=== PATIENT | male | born 1975 | race Hispanic/Latino ===

== ENCOUNTER 2017-12-25 23:11 | Inpatient (IN) | payer OTHER ==
[2017-12-26 00:10] LABS: #Basophils 0.1 thou/uL (0.0-0.2); #Eosinphils 0.1 thou/uL (0.0-0.7); #Lymphocytes 1.8 thou/uL (1.20-3.40); #Monocytes 1.1 thou/uL (0.11-0.59); #Neutrophils 11.3 thou/uL (1.40-6.50); %Basophils 0.6 % (0.0-1.0); %Eosinophils 0.4 % (0.0-10.0); %Lymphocytes 12.5 % (21.0-51.0); %Monocytes 7.6 % (0.0-10.0); Hemoglobin 14.2 g/dL (14.0-18.0); Mean Corpuscular HGB CONC 35.9 g/dL (32.0-36.0); Mean Corpuscular Hemoglobin 31.4 pg (27.0-31.0); Mean Corpuscular Volume 87.6 fL (78.0-98.0); Mean Platelet Volume 7.6 fL (7.4-10.4); Platelet Count 175 thou/uL (130-400); RBC Distribution Width 12.1 % (11.5-14.5); Red Blood Cell (RBC) Count 4.53 mill/uL (4.70-6.10); White Blood Cell (WBC) Count 14.3 thou/uL (4.8-10.8)
[2017-12-26] MEDS ORDERED: Morphine 4 MG/ML VIAL ONE (00:18)
[2017-12-26] MEDS ORDERED: cefTRIAXone\\ROCEPHIN 2 GM VIAL ONE (00:19)
[2017-12-26 00:31] LABS: ALT (SGPT) 40 U/L (8-55); AST (SGOT) 24 U/L (5-34); Albumin 3.8 g/dL (3.5-5.0); Alkaline Phosphatase 79 U/L (40-150); Anion Gap 14 mmol/L (10-20); BUN (Urea Nitrogen) 10 mg/dL (8.9-20.6); Bilirubin, Total 0.7 mg/dL (0.2-1.2); Calc. Creatinine Clearance 0 mL/min (70-130); Calcium 8.8 mg/dL (7.8-10.44); Carbon Dioxide 20 mmol/L (22-29); Chloride 107 mmol/L (98-107); Estimated GFR-MDRD Greater than 90; Globulin 2.9 g/dL (2.4-3.5); Glucose 125 mg/dL (70-105); Magnesium 1.7 mg/dL (1.6-2.6); Protein, Total 6.7 g/dL (6.0-8.3); Sodium 137 mmol/L (136-145)
[2017-12-26 00:32] LABS: CKMB 0.3 ng/mL (0-6.6); Troponin I Less than 0.010 ng/mL (< 0.028)
[2017-12-26 01:25] LABS: Bilirubin Negative (Negative); Blood, Urine Negative (Negative); Clarity CLEAR (Clear); Glucose, Urine (Dipstick) Negative (Negative); Leukocyte Negative (Negative); Nitrite Negative (Negative); Protein, Urine (Dipstick) Negative (Neg-Trace); Specific Gravity, Urine 1.009 (1.002-1.036); pH, Urine 7.5 (5.0-9.0)
[2017-12-26] MEDS ORDERED: HYDROcodone/Acetaminophen 5/325 mg Tablet ONE (02:37)
[2017-12-26] MEDS ORDERED: Ondansetron ODT 4 MG TAB SL PRN (03:25)
[2017-12-26] MEDS ORDERED: Acetaminophen 325 MG TAB PO PRN ×2 (03:25→07:43)
[2017-12-26] MEDS ORDERED: HYDROcodone/Acetaminophen 5/325 mg Tablet PO PRN ×3 (03:25→07:43)
[2017-12-26] MEDS ORDERED: Ondansetron HCl/PF 4 MG/2 ML Vial IVP PRN (03:25)
[2017-12-26 03:37] VITALS: BMI 31.3
[2017-12-26] MEDS ORDERED: Ondansetron ODT 4 MG TAB PO PRN (07:43)
[2017-12-26] MEDS ORDERED: Senokot 8.6 MG TAB PO PRN (07:43)
[2017-12-26] MEDS ORDERED: Calcium Carbonate 500 MG ChewTAB PO PRN (07:43)
[2017-12-26] MEDS ORDERED: Vancomycin HCl 1 GM in Premix Bag 1 BAG IVPB SCH (07:45)
[2017-12-26 08:25] LABS: Hemoglobin A1c 5.4 % (4.0-6.0)
[2017-12-26] MEDS: Sodium Chloride 0.9% 1,000 ML IV SCH (09:00)
[2017-12-26] MEDS: Piperacillin/Tazobactam 3.375 GM in Sodium Chloride 0.9% 100 ML IVPB SCH ×3 (09:00→20:16)
[2017-12-26] MEDS: Enoxaparin Sodium 40 MG/0.4 ML SYRINGE SC SCH (09:00)
[2017-12-26] MEDS: Docusate 100 MG CAP PO SCH ×2 (09:00→20:17)
[2017-12-26] MEDS: HYDROcodone/Acetaminophen 5/325 mg Tablet PO PRN ×3 (09:47→17:56)
[2017-12-26] MEDS: Vancomycin HCl 1.25 GM in Sodium Chloride 0.9% 250 ML 250 ML IVPB SCH ×2 (09:47→17:55)
--- NOTE | 2017-12-26 10:36 | RAD ---
SINGLE VIEW OF RIGHT FEMUR: Date: 12/26/17 COMPARISON: None. HISTORY: Right thigh cellulitis. Evaluate for foreign body. FINDINGS: Single anterior views of the right thigh/femur were performed. There is no evidence of fracture or di slocation. No radiopaque foreign body is seen. IMPRESSION: No evidence of radiopaque foreign body. POS: [facility]
--- NOTE | 2017-12-26 11:30 | HP ---
DATE OF ADMISSION: 12/26/2017 PRIMARY CARE PHYSICIAN: Patient is an inmate. CHIEF COMPLAINT: Right thigh swelling and pain of 1 day duration. HISTORY OF PRESENT ILLNESS: Patient is a 42-year-old male who is an inmate who was brought into the emergency room with above complaints. Over the last 24 hours, patient noticed gradual worsening pain along with swelling and tenderness ove r the anterior right thigh. It started with a small blister that eventually ruptured. He also felt feverish and had intermittent chills. His pain was 10/10 over his right thigh. He was unable to wal k due to significant pain. He denies similar episodes in the past. He denies any trauma. He thinks that he may have had an insect bite. In the emergency room, his initial vital signs showed temperature of 102.3, pulse rate of 120, blood pressure 153/90 with O2 saturation of 96% on room air. His EKG showed sinus tachycardia. He receive d vancomycin, Rocephin, morphine, Tylenol and [place] in the emergency room. PAST MEDICAL HISTORY: 1. Anxiety. 2. Chronic hip pain, on naproxen. PAST SURGICAL HISTORY: Reviewed with the patient and none. ALLERGIES: No known drug allergies. CURRENT HOME MEDICATION: Naproxen on a daily basis. SOCIAL HISTORY: The patient smokes up to 1 cigarette on a daily basis. No alcohol or drug use. FAMILY HISTORY: Negative for heart disease. REVIEW OF SYSTEMS: The following complete review of systems was negative, unless otherwise mentioned in the HPI or below: Constitutional: Weight loss or gain, ability to conduct usual activities. Skin: Rash, itching. Eyes: Double vision, pain. ENT/Mouth: Nose bleeding, neck stiffness, pain, tenderness. Cardiovascular: Palpitations, dyspnea on exertion, orthopnea. Respiratory: Shortness of breath, wheezing, cough, hemoptysis, fever or night sweats. Gastrointestinal: Poor appetite, abdominal pain, heartburn, nausea, vomiting, constipation, or diarr hea. Genitourinary: Urgency, frequency, dysuria, nocturia. Musculoskeletal: Pain, swelling. Neurologic/Psychiatric: Anxiety, depression. Allergy/Immunologic: Skin rash, bleeding tendency. PHYSICAL EXAMINATION: VITAL SIGNS: As discussed above. GENERAL: A 42-year-old male in mild distress due to significant thigh pain. HEENT: Head is atraumatic, normocephalic. Sclerae are anicteric. Moist mucous membrane, no oral le joe. NECK: Supple, no JVD, no carotid bruit. LUNGS: Clear to auscultation bilaterally, no wheezing, rales or rhonchi. HEART: S1, S2 present. Regular rate and rhythm. No murmur, rubs, or gallops. ABDOMEN: Soft, nontender, bowel sounds present. EXTREMITIES: There is significant warmth along with swelling noted over the right anterior thigh. N o fluctuance appreciated. Indurated area has approximately 6 inch x 10 inch with some induration. I t is warm on palpation. There is significant tenderness on palpation. SKIN: As discussed above. LYMPH NODES: No palpable lymph nodes in the neck. PERIPHERAL VASCULAR: Radial pulses palpable bilaterally. MUSCULOSKELETAL: No joint swelling or tenderness. LABORATORY DATA AND IMAGING DATA: 1. CBC showed WBC of 14.3 with 79% neutrophils, hemoglobin 14.2. 2. CRP 11.9, hemoglobin A1c 5.4. Troponins negative. Sodium 137, potassium 4, chloride 107, bicarb joshua 20, BUN 10, creatinine 0.8. Urinalysis was negative. 3. X-ray of the femur by my review was negative for foreign body. 4. Blood cultures are pending at this time. 5. EKG by my review showed sinus tachycardia without significant ST-T wave changes. IMPRESSION: 1. Sepsis secondary to right thigh cellulitis with suspected abscess. 2. Elevated inflammatory markers. 3. Anxiety. 4. Tobacco dependence. 5. Obesity with body mass index of 31.3. 6. Leukocytosis secondary to #1. 7. Sinus tachycardia secondary to #1. PLAN: The patient will be monitored on the medical floor. We will continue vancomycin. We will add Zosyn. We will get wound culture. Consult wound care. Consult Infectious Disease. Await blood cu ltures. Deep venous thrombosis prophylaxis. Gentle intravenous hydration. Walking program. Plan of care was discussed with the patient in detail. He stated understanding.
[2017-12-27] MEDS: Vancomycin HCl 1.25 GM in Sodium Chloride 0.9% 250 ML 250 ML IVPB SCH ×3 (00:43→17:52)
[2017-12-27] MEDS: HYDROcodone/Acetaminophen 5/325 mg Tablet PO PRN ×3 (00:48→20:49)
[2017-12-27] MEDS: Piperacillin/Tazobactam 3.375 GM in Sodium Chloride 0.9% 100 ML IVPB SCH ×4 (02:36→20:48)
[2017-12-27 05:12] LABS: #Eosinphils 0.2 thou/uL (0.0-0.7); #Lymphocytes 1.8 thou/uL (1.20-3.40); #Monocytes 0.6 thou/uL (0.11-0.59); #Neutrophils 9.5 thou/uL (1.40-6.50); %Basophils 0.4 % (0.0-1.0); %Eosinophils 1.3 % (0.0-10.0); %Lymphocytes 14.6 % (21.0-51.0); %Monocytes 5.2 % (0.0-10.0); %Neutrophils 78.4 % (42.0-75.0); Mean Corpuscular HGB CONC 34.6 g/dL (32.0-36.0); Mean Corpuscular Hemoglobin 30.5 pg (27.0-31.0); Mean Corpuscular Volume 88.2 fL (78.0-98.0); Mean Platelet Volume 7.6 fL (7.4-10.4); Platelet Count 204 thou/uL (130-400); RBC Distribution Width 12.1 % (11.5-14.5); Red Blood Cell (RBC) Count 4.59 mill/uL (4.70-6.10); White Blood Cell (WBC) Count 12.1 thou/uL (4.8-10.8)
[2017-12-27 05:41] LABS: ALT (SGPT) 88 U/L (8-55); AST (SGOT) 61 U/L (5-34); Albumin 3.8 g/dL (3.5-5.0); Alkaline Phosphatase 82 U/L (40-150); Anion Gap 13 mmol/L (10-20); BUN (Urea Nitrogen) 9 mg/dL (8.9-20.6); Bilirubin, Total 0.9 mg/dL (0.2-1.2); Calc. Creatinine Clearance 136 mL/min (70-130); Carbon Dioxide 22 mmol/L (22-29); Chloride 106 mmol/L (98-107); Estimated GFR-MDRD Greater than 90; Globulin 3.2 g/dL (2.4-3.5); Glucose 130 mg/dL (70-105); Potassium 4.3 mmol/L (3.5-5.1); Sodium 137 mmol/L (136-145)
[2017-12-27] MEDS: Docusate 100 MG CAP PO SCH ×2 (08:42→20:48)
[2017-12-27] MEDS: Enoxaparin Sodium 40 MG/0.4 ML SYRINGE SC SCH (08:42)
[2017-12-27] MEDS: Sodium Chloride 0.9% 1,000 ML IV SCH ×2 (08:47)
[2017-12-27] MEDS ORDERED: ISOVUE-370 76%-LOCM 1 ML ONE (10:00)
[2017-12-27] MEDS: Naproxen 500 MG TAB PO SCH ×2 (13:39→17:52)
--- NOTE | 2017-12-27 15:17 | CT ---
CONTRAST ENHANCED CT IMAGES OF RIGHT THIGH: Date: 12/27/17 HISTORY: Right thigh phlegmon. Evaluate abscess versus cellulitis. FINDINGS: Contrast enhanced CT images of the proximal right lower extremity obtained. Images demonstrate edema with inflammatory changes seen anterior to the right thigh in the subcutaneo us fat extending from the anterior aspect laterally. No definite evidence of areas of significant enh ancement seen to suggest obvious right thigh abscess. No significant evidence of obvious muscular nec rosis or enhancement seen. No areas of central fluid density seen. IMPRESSION: Predominantly subcutaneous fat areas of fat stranding compatible with cellulitis. No obvious evidence of abscess seen in the right thigh. POS: [facility]
--- NOTE | 2017-12-27 15:18 | CON ---
DATE OF CONSULTATION: 12/27/2017 REASON FOR CONSULTATION: Right thigh inflammatory process. HISTORY OF PRESENT ILLNESS: A 42-year-old with history of arthritis in the hip area, anxiety who dev eloped what he describes as a pimple in the right anterior mid thigh which he proceeded to squeeze. The patient is an inmate in local [facility] [place] or correction after they tried to squeeze it. There was progr ession of inflammatory process over the past few days. It was eventually admitted. Currently on bro ad spectrum coverage and we have 1 set out of 2 with what appears to be an alpha hemolytic streptococ cus. No headaches, visual symptoms, sore throat, odynophagia, dysphagia, no back pain, no dyspnea or cough. No abdominal pain, diarrhea, voiding without difficulty. No bleeding. No other joint sympt oms. PAST MEDICAL HISTORY: Includes anxiety, arthropathy and ankle in the hips, probably degenerative. H istory of previous abscess in the right hand many years ago. ALLERGIES: None. MEDICATIONS: Had been on naproxen in the hospital. Here is currently on Presto, Colace, Lovenox, Pep litzy, Zosyn, and vancomycin. SOCIAL HISTORY: He had been a previous daily smoker, no alcoholic beverage use or drug use. He is c urrently at [facility], I believe FAMILY HISTORY: Negative for any significant illness. PHYSICAL EXAMINATION: VITAL SIGNS: T-max 98.6, blood pressure 130/80, pulse 102, respirations 18. SKIN: Shows area of erythema measuring about 12 x 15 cm in an irregular area in the right anterior t high proximal mid thigh region with a central area of pinhole wound opening. There is marked indurat ion surrounding this area. No lymphadenopathy. HEENT: Noncontributory. NECK: Supple. BACK: No back tenderness. LUNGS: Clear to auscultation and percussion. HEART: Normal. ABDOMEN: Soft, not distended or tender. No ascites. No bladder distention or organomegaly. EXTREMITIES: No joint inflammatory activity. Pulses 2+ in dorsalis pedis. NEUROLOGIC: Nonfocal including cognitive function. LABORATORY DATA: White cell count 14 and now 12, hemoglobin 14 and now is stable, platelets at 44 wi th a mild mature neutrophilia. Creatinine 0.8. Liver profile normal. Now, the AST is up to 61, ALT 88. CRP 11, albumin 3.8. IMAGING STUDIES: Femur x-ray which was not remarkable. Microbiology with alpha hemolytic strep in 1 out of 2 sets of blood cultures and the thigh, right culture with no organism growth thus far. ASSESSMENT: Inflammatory process right thigh with a likely possibility of abscess/phlegmon. We will image the area to see if he will need surgical debridement or not. Continue antimicrobial therapy a s currently. Likely culprits here include Staphylococcus aureus is the more likely culprit. The Str eptococcus retrieved from the blood stream could be a contaminant. We will wait for the final identi fication and typically alpha hemolytic Streptococci do not cause this sort of a process associated wi th hair follicles. Usually, this is a typical Staphylococcal process.
[2017-12-27] MEDS: Famotidine 20 MG TAB PO SCH (20:48)
--- NOTE | 2017-12-27 23:04 | PDOC.PN ---
- Subjective Encounter Start Date: 12/27/17 Encounter Start Time: 15:00 Patient seen and examined for Rt thigh cellulitis. Still has significant pain. No new complaints. No overnight events - Objective Resuscitation Status: Resuscitation Status FULL:Full Resuscitation MAR Reviewed: Yes Vital Signs & Weight: Vital Signs (12 hours) Temp Pulse Resp BP Pulse Ox 12/27/17 15:32 98.2 F 99 16 155/99 H 93 L 12/27/17 11:20 98.8 F 102 H 18 131/85 18 L Weight Admit Weight 200 lb Weight 200 lb I&O: 12/26/17 12/27/17 12/28/17 06:59 06:59 06:59 Intake Total 410 1200 2200 Output Total 500 600 Balance -90 600 2200 Result Diagrams: 12/27/17 23:44 12/27/17 23:44 Radiology Reviewed by me: Yes (Rt thigh CT - No abscess) Phys Exam - Physical Examination Constitutional: NAD Respiratory: no wheezing, no rhonchi Cardiovascular: RRR, no rub Gastrointestinal: soft, non-tender, positive bowel sounds Musculoskeletal: pulses present Rt thigh erythema/tenderness Neurological: non-focal, moves all 4 limbs Dx/Plan - Plan DVT proph w/SCDs IMPRESSION: 1. Sepsis secondary to right thigh cellulitis 2. Elevated inflammatory markers. 3. Anxiety. 4. Tobacco dependence. 5. Obesity with body mass index of 31.3. 6. Leukocytosis secondary to #1. 7. Sinus tachycardia secondary to #1. PLAN: Cont Vancomycin and Zosyn Monitor Vancomycin level AM labs Pain control Review of Systems - Review of Systems Respiratory: negative: Cough, Dry, Shortness of Breath, Hemoptysis, SOB with Excertion, Pleuritic Pain, Sputum, Wheezing Cardiovascular: negative: chest pain, palpitations, orthopnea, paroxysmal nocturnal dyspnea, edema, light headedness, other - Medications/Allergies Allergies/Adverse Reactions: Allergies Allergy/AdvReac Type Severity Reaction Status Date / Time No Known Allergies Allergy Unverified 12/26/17 03:21 Medications: Current Medications Acetaminophen (Tylenol) 650 mg PO Q4H PRN PRN Reason: Headache/Fever or Pain Hydrocodone Bitart/Acetaminophen ([place] 5/325) 1 tab PO Q4H PRN PRN Reason: Moderate Pain (4-6) Hydrocodone Bitart/Acetaminophen ([place] 5/325) 2 tab PO Q4H PRN PRN Reason: Severe Pain (7-10) Last Admin: 12/27/17 20:49 Dose: 2 tab Calcium Carbonate (Tums) 1,000 mg PO Q4H PRN PRN Reason: Heartburn or Indigestion Docusate Sodium (Colace) 100 mg PO BID [facility] Last Admin: 12/27/17 20:48 Dose: 100 mg Enoxaparin Sodium (Lovenox) 40 mg SC 0900 [facility] Last Admin: 12/27/17 08:42 Dose: 40 mg Famotidine (Pepcid) 20 mg PO BID [facility] Last Admin: 12/27/17 20:48 Dose: 20 mg Sodium Chloride (Normal Saline 0.9%) 1,000 mls @ 70 mls/hr IV .[id number] [facility] Last Admin: 12/27/17 08:47 Dose: 1,000 mls Piperacillin Sod/Tazobactam (Sod 3.375 gm/ Sodium Chloride) 100 mls @ 200 mls/ hr IVPB Q6H [facility] Last Admin: 12/27/17 20:48 Dose: 100 mls Vancomycin HCl 1.25 gm/ Sodium (Chloride) 250 mls @ 166.667 mls/hr IVPB Q8H [facility] Last Admin: 12/27/17 17:52 Dose: 250 mls Miscellaneous Medication (Pharmacy To Dose) 1 each IVPB ASDIR [facility] Naproxen (Naprosyn) 500 mg PO BID-[facility] Last Admin: 12/27/17 17:52 Dose: 500 mg Ondansetron HCl (Zofran Odt) 4 mg PO Q6H PRN PRN Reason: Nausea/Vomiting Senna (Senokot) 2 tab PO HSPRN PRN PRN Reason: Constipation Sodium Chloride (Flush - Normal Saline) 10 ml IVF Q12HR [facility] Last Admin: 12/27/17 20:48 Dose: 10 ml Sodium Chloride (Flush - Normal Saline) 10 ml IVF PRN PRN PRN Reason: Saline Flush
[2017-12-27 23:52] LABS: #Basophils 0.1 thou/uL (0.0-0.2); #Eosinphils 0.2 thou/uL (0.0-0.7); #Lymphocytes 2.2 thou/uL (1.20-3.40); #Monocytes 0.7 thou/uL (0.11-0.59); #Neutrophils 7.2 thou/uL (1.40-6.50); %Basophils 0.6 % (0.0-1.0); %Eosinophils 2.2 % (0.0-10.0); %Lymphocytes 21.3 % (21.0-51.0); %Monocytes 6.6 % (0.0-10.0); %Neutrophils 69.4 % (42.0-75.0); Hemoglobin 12.7 g/dL (14.0-18.0); Mean Corpuscular HGB CONC 34.9 g/dL (32.0-36.0); Mean Corpuscular Hemoglobin 30.8 pg (27.0-31.0); Mean Corpuscular Volume 88.3 fL (78.0-98.0); Mean Platelet Volume 7.3 fL (7.4-10.4); Platelet Count 211 thou/uL (130-400); Red Blood Cell (RBC) Count 4.13 mill/uL (4.70-6.10); White Blood Cell (WBC) Count 10.4 thou/uL (4.8-10.8)
[2017-12-28 00:13] LABS: Vancomycin, Trough 16.2 ug/mL
[2017-12-28 00:14] LABS: Anion Gap 10 mmol/L (10-20); BUN (Urea Nitrogen) 8 mg/dL (8.9-20.6); Calc. Creatinine Clearance 142 mL/min (70-130); Calcium 9.1 mg/dL (7.8-10.44); Carbon Dioxide 26 mmol/L (22-29); Chloride 105 mmol/L (98-107); Estimated GFR-MDRD Greater than 90; Glucose 112 mg/dL (70-105); Sodium 137 mmol/L (136-145)
[2017-12-28] MEDS: Vancomycin HCl 1.25 GM in Sodium Chloride 0.9% 250 ML 250 ML IVPB SCH ×3 (01:11→17:00)
[2017-12-28] MEDS: Piperacillin/Tazobactam 3.375 GM in Sodium Chloride 0.9% 100 ML IVPB SCH ×4 (02:42→20:25)
[2017-12-28] MEDS: Sodium Chloride 0.9% 1,000 ML IV SCH ×2 (02:43→10:55)
[2017-12-28] MEDS: Enoxaparin Sodium 40 MG/0.4 ML SYRINGE SC SCH (08:53)
[2017-12-28] MEDS: Docusate 100 MG CAP PO SCH (08:53)
[2017-12-28] MEDS: Naproxen 500 MG TAB PO SCH ×2 (08:53→17:00)
[2017-12-28] MEDS: HYDROcodone/Acetaminophen 5/325 mg Tablet PO PRN ×3 (08:53→20:26)
[2017-12-28] MEDS: Famotidine 20 MG TAB PO SCH ×2 (08:53→20:26)
[2017-12-28] MEDS ORDERED: Polyethylene Glycol 3350 17 GM Packet PO SCH (10:30)
--- NOTE | 2017-12-28 15:14 | PRG ---
DATE OF SERVICE: 12/28/2017 SUBJECTIVE: Mr. Pineda is feeling better. PHYSICAL EXAMINATION: VITAL SIGNS: Normal. There is less erythema in the right thigh region. LUNGS: Clear. CARDIOVASCULAR: S1, S2, regular rate. ABDOMEN: Soft. DATABASE: CT did not show any obvious abscess. ASSESSMENT AND DISCUSSION: Inflammatory process right thigh with cellulitis, maybe early phlegmon ma y turn into an abscess eventually. Continue antimicrobial therapy only. The organisms, likely Staph ylococcus aureus which has been retrieved from the thigh culture. The alpha strep is likely contamin ant. Waiting on the susceptibilities of the Staph aureus. Hopefully, can transition to oral antimic robial therapy after an initial improvement for discharge planning. Those cases typically will event ually liquefy form an abscess, sometimes might require surgical drainage.
[2017-12-28] MEDS: Senokot S 8.6-50 MG TAB PO SCH (20:26)
--- NOTE | 2017-12-28 22:38 | PDOC.PN ---
- Subjective Encounter Start Date: 12/28/17 Encounter Start Time: 17:00 Patient seen and examined for Cellulitis. Still has significant Rt thigh pain. No new complaints. No overnight events - Objective Resuscitation Status: Resuscitation Status FULL:Full Resuscitation MAR Reviewed: Yes Vital Signs & Weight: Vital Signs (12 hours) Temp Pulse Resp BP Pulse Ox 12/28/17 20:30 98.0 F 84 18 132/82 96 12/28/17 16:00 97.3 F L 79 18 123/80 93 L 12/28/17 11:55 97.9 F 83 18 123/78 97 Weight Admit Weight 200 lb Weight 200 lb I&O: 12/27/17 12/28/17 12/29/17 06:59 06:59 06:59 Intake Total 1200 3400 3710 Output Total 600 Balance 600 3400 3710 Result Diagrams: 12/27/17 23:44 12/27/17 23:44 Phys Exam - Physical Examination Constitutional: NAD Cardiovascular: RRR, no rub Gastrointestinal: soft, non-tender, positive bowel sounds Musculoskeletal: no edema Improving erythema over Rt thigh, Still has induration Neurological: non-focal Dx/Plan - Plan continue antibiotics, out of bed/ambulate, DVT proph w/lovenox, DVT proph w/SCDs IMPRESSION: 1. Sepsis secondary to right thigh cellulitis due to Staph 2. Elevated inflammatory markers. 3. Anxiety. 4. Tobacco dependence. 5. Obesity with body mass index of 31.3. 6. Leukocytosis secondary to #1. 7. Sinus tachycardia secondary to #1. PLAN: Cont Atbx Monitor Vancomycin level Pain control DC planning Review of Systems - Review of Systems Respiratory: negative: Cough, Dry, Shortness of Breath, Hemoptysis, SOB with Excertion, Pleuritic Pain, Sputum, Wheezing Cardiovascular: negative: chest pain, palpitations, orthopnea, paroxysmal nocturnal dyspnea, edema, light headedness, other - Medications/Allergies Allergies/Adverse Reactions: Allergies Allergy/AdvReac Type Severity Reaction Status Date / Time No Known Allergies Allergy Unverified 12/26/17 03:21 Medications: Current Medications Acetaminophen (Tylenol) 650 mg PO Q4H PRN PRN Reason: Headache/Fever or Pain Hydrocodone Bitart/Acetaminophen ([place] 5/325) 1 tab PO Q4H PRN PRN Reason: Moderate Pain (4-6) Hydrocodone Bitart/Acetaminophen ([place] 5/325) 2 tab PO Q4H PRN PRN Reason: Severe Pain (7-10) Last Admin: 12/28/17 20:26 Dose: 2 tab Calcium Carbonate (Tums) 1,000 mg PO Q4H PRN PRN Reason: Heartburn or Indigestion Enoxaparin Sodium (Lovenox) 40 mg SC 0900 [facility] Last Admin: 12/28/17 08:53 Dose: 40 mg Famotidine (Pepcid) 20 mg PO BID [facility] Last Admin: 12/28/17 20:26 Dose: 20 mg Piperacillin Sod/Tazobactam (Sod 3.375 gm/ Sodium Chloride) 100 mls @ 200 mls/ hr IVPB Q6H [facility] Last Admin: 12/28/17 20:25 Dose: 100 mls Vancomycin HCl 1.25 gm/ Sodium (Chloride) 250 mls @ 166.667 mls/hr IVPB Q8H [facility] Last Admin: 12/28/17 17:00 Dose: 250 mls Sodium Chloride (Normal Saline 0.9%) 1,000 mls @ 50 mls/hr IV .Q20H [facility] Last Admin: 12/28/17 10:55 Dose: Not Given Miscellaneous Medication (Pharmacy To Dose) 1 each IVPB ASDIR [facility] Naproxen (Naprosyn) 500 mg PO BID-[facility] Last Admin: 12/28/17 17:00 Dose: 500 mg Ondansetron HCl (Zofran Odt) 4 mg PO Q6H PRN PRN Reason: Nausea/Vomiting Polyethylene Glycol (Miralax) 17 gm PO DAILY [facility] Senna (Senokot) 2 tab PO HSPRN PRN PRN Reason: Constipation Senna/Docusate Sodium (Senokot S) 1 tab PO BID [facility] Last Admin: 12/28/17 20:26 Dose: 1 tab Sodium Chloride (Flush - Normal Saline) 10 ml IVF Q12HR [facility] Last Admin: 12/28/17 21:07 Dose: Not Given Sodium Chloride (Flush - Normal Saline) 10 ml IVF PRN PRN PRN Reason: Saline Flush
[2017-12-29] MEDS: Vancomycin HCl 1.25 GM in Sodium Chloride 0.9% 250 ML 250 ML IVPB SCH ×3 (00:09→16:12)
[2017-12-29] MEDS: Piperacillin/Tazobactam 3.375 GM in Sodium Chloride 0.9% 100 ML IVPB SCH ×4 (01:45→22:35)
[2017-12-29] MEDS: Enoxaparin Sodium 40 MG/0.4 ML SYRINGE SC SCH (07:47)
[2017-12-29] MEDS: Famotidine 20 MG TAB PO SCH ×2 (07:48→20:48)
[2017-12-29] MEDS: Naproxen 500 MG TAB PO SCH ×2 (07:48→16:13)
[2017-12-29] MEDS: Polyethylene Glycol 3350 17 GM Packet PO SCH (07:48)
[2017-12-29] MEDS: Senokot S 8.6-50 MG TAB PO SCH ×2 (07:48→20:48)
[2017-12-29] MEDS: HYDROcodone/Acetaminophen 5/325 mg Tablet PO PRN ×3 (07:49→20:48)
[2017-12-29] MEDS: Sodium Chloride 0.9% 1,000 ML IV SCH ×2 (11:20→22:31)
--- NOTE | 2017-12-29 15:04 | PDOC.PN ---
- Subjective Encounter Start Date: 12/29/17 Encounter Start Time: 15:03 Patient seen and examined by me. Right thigh abscess/cellulitis draining pus. Patient states that he is in pain. - Objective Resuscitation Status: Resuscitation Status FULL:Full Resuscitation MAR Reviewed: Yes Vital Signs & Weight: Vital Signs (12 hours) Temp Pulse Resp BP Pulse Ox 12/29/17 11:56 98.0 F 71 16 124/83 96 12/29/17 07:49 98.2 F 86 18 96 12/29/17 07:41 98.2 F 86 18 133/82 96 12/29/17 04:00 97.6 F 70 17 114/64 97 Weight Admit Weight 200 lb Weight 200 lb I&O: 12/28/17 12/29/17 12/30/17 06:59 06:59 06:59 Intake Total 3400 5060 Balance 3400 5060 Result Diagrams: 12/27/17 23:44 12/27/17 23:44 Phys Exam - Physical Examination Constitutional: NAD HEENT: PERRLA, moist MMs Neck: no nodes, no JVD Respiratory: no wheezing, no rales, no rhonchi, clear to auscultation bilateral Cardiovascular: RRR, no significant murmur Gastrointestinal: soft, non-tender, no distention Musculoskeletal: no edema, pulses present Neurological: non-focal, normal sensation, moves all 4 limbs Psychiatric: A&O x 3 Skin: normal turgor Deviation from normal: right thigh tenderness with ecchymosis/ induration Dx/Plan (1) Abscess of right thigh Code(s): L02.415 - CUTANEOUS ABSCESS OF RIGHT LOWER LIMB Status: Acute Comment: Will continue antibiotics. Wound care. Will consult surgery for futher evaluation. Will follow ID's recs. Pain meds prn. (2) Cellulitis of right thigh Code(s): L03.115 - CELLULITIS OF RIGHT LOWER LIMB Status: Acute Comment: continue antibiotics (3) Sepsis Code(s): A41.9 - SEPSIS, UNSPECIFIED ORGANISM Status: Acute Comment: resolved. Will continue current managment. (4) Anxiety Code(s): F41.9 - ANXIETY DISORDER, UNSPECIFIED Status: Acute Comment: stable at this time. - Plan * . Review of Systems - Review of Systems Constitutional: negative: fever, chills, sweats, weakness, malaise, other Eyes: negative: Pain, Vision Change, Conjunctivae Inflammation, Eyelid Inflammation, Redness, Other ENT: negative: Ear Pain, Ear Discharge, Nose Pain, Nose Discharge, Nose Congestion, Mouth Pain, Mouth Swelling, Throat Pain, Throat Swelling, Other Respiratory: negative: Cough, Dry, Shortness of Breath, Hemoptysis, SOB with Excertion, Pleuritic Pain, Sputum, Wheezing Cardiovascular: negative: chest pain, palpitations, orthopnea, paroxysmal nocturnal dyspnea, edema, light headedness, other Gastrointestinal: negative: Nausea, Vomiting, Abdominal Pain, Diarrhea, Constipation, Melena, Hematochezia, Other Genitourinary: negative: Dysuria, Frequency, Incontinence, Hematuria, Retention , Other Musculoskeletal: negative: Neck Pain, Shoulder Pain, Arm Pain, Back Pain, Hand Pain, Leg Pain, Foot Pain, Other Skin: Other (right thigh abscess and cellulitis). negative: Rash, Lesions, Ruben , Bruising Neurological: negative: Weakness, Numbness, Incoordination, Change in Speech, Confusion, Seizures, Other - Medications/Allergies Allergies/Adverse Reactions: Allergies Allergy/AdvReac Type Severity Reaction Status Date / Time No Known Allergies Allergy Unverified 12/26/17 03:21 Medications: Current Medications Acetaminophen (Tylenol) 650 mg PO Q4H PRN PRN Reason: Headache/Fever or Pain Hydrocodone Bitart/Acetaminophen ([place] 5/325) 1 tab PO Q4H PRN PRN Reason: Moderate Pain (4-6) Hydrocodone Bitart/Acetaminophen ([place] 5/325) 2 tab PO Q4H PRN PRN Reason: Severe Pain (7-10) Last Admin: 12/29/17 07:49 Dose: 2 tab Calcium Carbonate (Tums) 1,000 mg PO Q4H PRN PRN Reason: Heartburn or Indigestion Enoxaparin Sodium (Lovenox) 40 mg SC 0900 [facility] Last Admin: 12/29/17 07:47 Dose: 40 mg Famotidine (Pepcid) 20 mg PO BID [facility] Last Admin: 12/29/17 07:48 Dose: 20 mg Piperacillin Sod/Tazobactam (Sod 3.375 gm/ Sodium Chloride) 100 mls @ 200 mls/ hr IVPB Q6H [facility] Last Admin: 12/29/17 07:47 Dose: 100 mls Vancomycin HCl 1.25 gm/ Sodium (Chloride) 250 mls @ 166.667 mls/hr IVPB Q8H [facility] Last Admin: 12/29/17 07:55 Dose: 250 mls Sodium Chloride (Normal Saline 0.9%) 1,000 mls @ 50 mls/hr IV .Q20H [facility] Last Admin: 12/29/17 11:20 Dose: Not Given Miscellaneous Medication (Pharmacy To Dose) 1 each IVPB ASDIR [facility] Naproxen (Naprosyn) 500 mg PO BID-[facility] Last Admin: 12/29/17 07:48 Dose: 500 mg Ondansetron HCl (Zofran Odt) 4 mg PO Q6H PRN PRN Reason: Nausea/Vomiting Polyethylene Glycol (Miralax) 17 gm PO DAILY [facility] Last Admin: 12/29/17 07:48 Dose: 17 gm Senna (Senokot) 2 tab PO HSPRN PRN PRN Reason: Constipation Senna/Docusate Sodium (Senokot S) 1 tab PO BID [facility] Last Admin: 12/29/17 07:48 Dose: 1 tab Sodium Chloride (Flush - Normal Saline) 10 ml IVF Q12HR [facility] Last Admin: 12/29/17 07:55 Dose: 10 ml Sodium Chloride (Flush - Normal Saline) 10 ml IVF PRN PRN PRN Reason: Saline Flush
--- NOTE | 2017-12-29 19:02 | PRG ---
DATE OF SERVICE: 12/29/2017 SUBJECTIVE: The patient had a CT, did not show any abscess. He is feeling better, but still with an area of induration and pain at the center of this inflammatory process in the thigh. OBJECTIVE: VITAL SIGNS: Essentially normal. LUNGS: Clear. HEART: S1, S2 regular rate. ABDOMEN: Soft. EXTREMITIES: The right thigh with the area of erythema, is still quite extensive with an area of ind uration in the middle. The CT did not show any obvious abscess. White cell count is down to 10.4, hemoglobin 12.7. Microbi ology with Staph aureus, which appears to be methicillin sensitive from the thigh. ASSESSMENT AND DISCUSSION: Likely abscess in right thigh secondary to Staphylococcus aureus, possibl y methicillin-sensitive Staphylococcus aureus. Surgical I&D I believe has been requested, probably t o be carried out tomorrow. After that, should be able to be discharged on oral Keflex.
--- NOTE | 2017-12-29 23:33 | HP ---
HISTORY OF PRESENT ILLNESS: A 42-year-old male incarcerated for 4 years, admitted to the [facility] the emergency room on 12/26/2017. Dr. Cruz saw him in consultation. He had cellulitis of his ri ght thigh, femur x-ray. CAT scan obtained did not reveal an abscess or any inflammatory changes. Dr Talat Lugo looked at the wound this morning, the patient was having purulent drainage. The pat ient has been afebrile. White count on admission was 14, two days ago was 10; hemoglobin 12. Cultur es however were obtained on 12/26/2017 revealing Staphylococcus. Blood cultures are positive for alp stevens Streptococcus. Today, primary care physician looked at the wound and felt that perhaps it needed to be drained. Even though there is no report of drainage on admission, it was cultured on admission . ALLERGIES: None. TOBACCO: Used prior to incarceration. ALCOHOL: Used prior to incarceration. DRUG USE: Denied prior to incarceration. MEDICATIONS: Outpatient, naproxen. Inpatient, vancomycin and Zosyn. PAST SURGICAL HISTORY: Noncontributory. PAST MEDICAL HISTORY: Noncontributory. PHYSICAL EXAMINATION: VITAL SIGNS: 5 feet 7 inches, 200 pounds, 31 BMI, 98 degrees, 86, 18, 151/107. HEAD, EARS, EYES, NOSE, AND THROAT: Unremarkable. LUNGS: Clear to auscultation. CARDIAC: Regular rate and rhythm without murmur or gallop. ABDOMEN: Obese, soft, nontender. EXTREMITIES: Right thigh abscess and cellulitis with fluctuance and purulent thick drainage. ASSESSMENT AND PLAN: Right thigh abscess, in need of incision and drainage. Unfortunately, he has b een eating all day long, even after the consult was sent. We will plan incision and drainage of the right thigh abscess tomorrow and expect he can be discharged in 24-48 hours.
[2017-12-30 00:07] LABS: #Basophils 0.1 thou/uL (0.0-0.2); #Eosinphils 0.3 thou/uL (0.0-0.7); #Lymphocytes 2.1 thou/uL (1.20-3.40); #Monocytes 0.6 thou/uL (0.11-0.59); #Neutrophils 5.1 thou/uL (1.40-6.50); %Basophils 0.6 % (0.0-1.0); %Eosinophils 3.5 % (0.0-10.0); %Lymphocytes 26.2 % (21.0-51.0); %Monocytes 7.3 % (0.0-10.0); %Neutrophils 62.5 % (42.0-75.0); Hemoglobin 13.5 g/dL (14.0-18.0); Mean Corpuscular Volume 88.5 fL (78.0-98.0); Platelet Count 271 thou/uL (130-400); Red Blood Cell (RBC) Count 4.35 mill/uL (4.70-6.10); White Blood Cell (WBC) Count 8.1 thou/uL (4.8-10.8)
[2017-12-30 00:21] LABS: Vancomycin, Trough 19.5 ug/mL
[2017-12-30 00:23] LABS: Anion Gap 13 mmol/L (10-20); BUN (Urea Nitrogen) 9 mg/dL (8.9-20.6); Calc. Creatinine Clearance 139 mL/min (70-130); Calcium 9.6 mg/dL (7.8-10.44); Carbon Dioxide 27 mmol/L (22-29); Chloride 105 mmol/L (98-107); Estimated GFR-MDRD Greater than 90; Glucose 118 mg/dL (70-105); Potassium 4.7 mmol/L (3.5-5.1); Sodium 140 mmol/L (136-145)
[2017-12-30] MEDS: Vancomycin HCl 1.25 GM in Sodium Chloride 0.9% 250 ML 250 ML IVPB SCH ×3 (01:08→17:51)
[2017-12-30] MEDS: Piperacillin/Tazobactam 3.375 GM in Sodium Chloride 0.9% 100 ML IVPB SCH ×4 (04:50→23:46)
[2017-12-30] MEDS: Naproxen 500 MG TAB PO SCH ×2 (08:27→17:45)
[2017-12-30] MEDS: Famotidine 20 MG TAB PO SCH ×2 (08:28→21:45)
[2017-12-30] MEDS: Lactated Ringer's 1,000 ML IV SCH ×2 (08:28→17:51)
[2017-12-30] MEDS: Enoxaparin Sodium 40 MG/0.4 ML SYRINGE SC SCH (08:28)
[2017-12-30] MEDS: HYDROcodone/Acetaminophen 5/325 mg Tablet PO PRN ×3 (08:28→21:46)
[2017-12-30] MEDS: Senokot S 8.6-50 MG TAB PO SCH ×2 (08:28→21:45)
[2017-12-30] MEDS: Polyethylene Glycol 3350 17 GM Packet PO SCH (08:35)
[2017-12-30] MEDS ORDERED: Dexamethasone 20 MG/5 ML VIAL ONE (10:02)
[2017-12-30] MEDS ORDERED: Ondansetron HCl/PF 4 MG/2 ML Vial ONE (10:02)
[2017-12-30] MEDS ORDERED: Lidocaine 1% PF 5 ML VIAL ONE (10:02)
[2017-12-30] MEDS ORDERED: PROPOFOL 200 MG/20 ML VIAL ONE (10:02)
[2017-12-30] MEDS ORDERED: Ketorolac Tromethamine 30 MG/ML VIAL ONE (10:02)
[2017-12-30] MEDS ORDERED: Lidocaine 2% 10 ML INJ ONE (13:57)
[2017-12-30] MEDS ORDERED: Bupivacaine HCl 0.5%/Epinephrine 1:200,000/PF 30 ml Vial ONE (13:57)
[2017-12-30] MEDS ORDERED: Fentanyl 100 MCG/2 ML VIAL ONE ×2 (14:11→15:36)
[2017-12-30] MEDS ORDERED: Famotidine/PF 20 mg/2ml Vial ONE (14:12)
[2017-12-30] MEDS ORDERED: Meperidine HCl/PF 25 MG/ML VIAL SLOW IVP PRN (14:56)
[2017-12-30] MEDS ORDERED: Ondansetron HCl/PF 4 MG/2 ML Vial IVP PRN (14:56)
[2017-12-30] MEDS ORDERED: Promethazine HCl 25 MG/ML VIAL IM PRN (14:56)
[2017-12-30] MEDS ORDERED: Promethazine HCl 25 MG/ML VIAL SLOW IVP PRN (14:56)
--- NOTE | 2017-12-30 19:40 | OP ---
DATE OF OPERATION: 12/30/2017 PREOPERATIVE DIAGNOSIS: Right thigh abscess anteriorly. POSTOPERATIVE DIAGNOSIS: Right thigh abscess anteriorly. PROCEDURES: Incision and drainage right thigh abscess, 8 cm incision, culture and sensitivity submit cici, abscess of the skin and subcutaneous tissue without necrotic tissue. SURGEON: Puma Sullivan M.D. ANESTHESIA: General. Local 0.5% Marcaine with epinephrine, 30 mL, mixed with 2% Xylocaine, 10 mL, 3 0 mL volume used. PROCEDURE IN DETAIL: The patient was taken to the operating room where under general anesthesia, rig ht thigh was clipped of hair, prepared with ChloraPrep, draped in routine fashion. Transverse skin i ncision was made carrying through skin and subcutaneous tissue and abscess cavity drained sharply. C ulture and sensitivity submitted. Wound irrigated. Hemostasis gained with the cautery. Saline wet and gauze dressing applied. The patient tolerated the procedure well.
--- NOTE | 2017-12-30 21:37 | PDOC.PN ---
- Subjective Encounter Start Date: 12/30/17 Encounter Start Time: 18:00 Patient seen and examined. NAD. States that he is hungry. NO acute events overnight - Objective Resuscitation Status: Resuscitation Status FULL:Full Resuscitation MAR Reviewed: Yes Vital Signs & Weight: Vital Signs (12 hours) Temp Pulse Resp BP Pulse Ox 12/30/17 20:00 98 F 79 16 125/87 94 L 12/30/17 16:54 97.8 F 69 16 142/87 H 97 12/30/17 11:15 97.7 F 77 16 130/86 93 L Weight Admit Weight 200 lb Weight 200 lb I&O: 12/29/17 12/30/17 12/31/17 06:59 06:59 06:59 Intake Total 5060 1940 1580 Balance 5060 1940 1580 Result Diagrams: 12/29/17 23:57 12/29/17 23:57 Dx/Plan (1) Abscess of right thigh Code(s): L02.415 - CUTANEOUS ABSCESS OF RIGHT LOWER LIMB Status: Acute Comment: S/p I&D. Cultured purulent drainage. Will follow up with culture results. MRSA is positive on previous cultures. Will continue antibiotics. Wound care. Will need ID to tell us which antibiotics patient can leave the hospital on. Will follow up with surgery on futher plans. (2) Cellulitis of right thigh Code(s): L03.115 - CELLULITIS OF RIGHT LOWER LIMB Status: Acute Comment: continue antibiotics (3) Sepsis Code(s): A41.9 - SEPSIS, UNSPECIFIED ORGANISM Status: Acute Comment: resolved. Will continue current managment. (4) Anxiety Code(s): F41.9 - ANXIETY DISORDER, UNSPECIFIED Status: Acute Comment: stable - Plan * . Review of Systems - Review of Systems Constitutional: negative: fever, chills, sweats, weakness, malaise, other Eyes: negative: Pain, Vision Change, Conjunctivae Inflammation, Eyelid Inflammation, Redness, Other ENT: negative: Ear Pain, Ear Discharge, Nose Pain, Nose Discharge, Nose Congestion, Mouth Pain, Mouth Swelling, Throat Pain, Throat Swelling, Other Respiratory: negative: Cough, Dry, Shortness of Breath, Hemoptysis, SOB with Excertion, Pleuritic Pain, Sputum, Wheezing Cardiovascular: negative: chest pain, palpitations, orthopnea, paroxysmal nocturnal dyspnea, edema, light headedness, other Gastrointestinal: negative: Nausea, Vomiting, Abdominal Pain, Diarrhea, Constipation, Melena, Hematochezia, Other Genitourinary: negative: Dysuria, Frequency, Incontinence, Hematuria, Retention , Other Musculoskeletal: negative: Neck Pain, Shoulder Pain, Arm Pain, Back Pain, Hand Pain, Leg Pain, Foot Pain, Other Skin: negative: Rash, Lesions, Ruben, Bruising, Other Neurological: negative: Weakness, Numbness, Incoordination, Change in Speech, Confusion, Seizures, Other - Medications/Allergies Allergies/Adverse Reactions: Allergies Allergy/AdvReac Type Severity Reaction Status Date / Time No Known Allergies Allergy Unverified 12/26/17 03:21 Medications: Current Medications Acetaminophen (Tylenol) 650 mg PO Q4H PRN PRN Reason: Headache/Fever or Pain Hydrocodone Bitart/Acetaminophen ([place] 5/325) 1 tab PO Q4H PRN PRN Reason: Moderate Pain (4-6) Hydrocodone Bitart/Acetaminophen ([place] 5/325) 2 tab PO Q4H PRN PRN Reason: Severe Pain (7-10) Last Admin: 12/30/17 17:45 Dose: 2 tab Calcium Carbonate (Tums) 1,000 mg PO Q4H PRN PRN Reason: Heartburn or Indigestion Enoxaparin Sodium (Lovenox) 40 mg SC 0900 [facility] Last Admin: 12/30/17 08:28 Dose: 40 mg Famotidine (Pepcid) 20 mg PO BID [facility] Last Admin: 12/30/17 08:28 Dose: 20 mg Vancomycin HCl 1.25 gm/ Sodium (Chloride) 250 mls @ 166.667 mls/hr IVPB Q8H [facility] Last Admin: 12/30/17 17:51 Dose: 250 mls Piperacillin Sod/Tazobactam (Sod 3.375 gm/ Sodium Chloride) 100 mls @ 200 mls/ hr IVPB 0500,1100,1700,2300 [facility] Last Admin: 12/30/17 17:44 Dose: 100 mls Lactated Ringer's (Lactated Ringer's) 1,000 mls @ 100 mls/hr IV .Q10H [facility] Last Admin: 12/30/17 17:51 Dose: Not Given Miscellaneous Medication (Pharmacy To Dose) 1 each IVPB ASDIR [facility] Naproxen (Naprosyn) 500 mg PO BID-WM [facility] Last Admin: 12/30/17 17:45 Dose: 500 mg Ondansetron HCl (Zofran Odt) 4 mg PO Q6H PRN PRN Reason: Nausea/Vomiting Polyethylene Glycol (Miralax) 17 gm PO DAILY [facility] Last Admin: 12/30/17 08:35 Dose: Not Given Senna (Senokot) 2 tab PO HSPRN PRN PRN Reason: Constipation Senna/Docusate Sodium (Senokot S) 1 tab PO BID [facility] Last Admin: 12/30/17 08:28 Dose: 1 tab Sodium Chloride (Flush - Normal Saline) 10 ml IVF Q12HR [facility] Last Admin: 12/30/17 08:35 Dose: 10 ml Sodium Chloride (Flush - Normal Saline) 10 ml IVF PRN PRN PRN Reason: Saline Flush
[2017-12-31 00:51] LABS: Vancomycin, Trough 26.9 ug/mL
[2017-12-31] MEDS: Lactated Ringer's 1,000 ML IV SCH ×3 (03:44→15:15)
[2017-12-31] MEDS: Piperacillin/Tazobactam 3.375 GM in Sodium Chloride 0.9% 100 ML IVPB SCH ×2 (05:44→11:57)
[2017-12-31] MEDS: HYDROcodone/Acetaminophen 5/325 mg Tablet PO PRN ×4 (05:46→22:17)
[2017-12-31] MEDS: Enoxaparin Sodium 40 MG/0.4 ML SYRINGE SC SCH (08:17)
[2017-12-31] MEDS: Naproxen 500 MG TAB PO SCH ×2 (08:17→16:50)
[2017-12-31] MEDS: Famotidine 20 MG TAB PO SCH ×2 (08:17→22:17)
[2017-12-31] MEDS: Senokot S 8.6-50 MG TAB PO SCH ×2 (08:17→22:17)
[2017-12-31] MEDS: Polyethylene Glycol 3350 17 GM Packet PO SCH (08:18)
[2017-12-31] MEDS ORDERED: Vancomycin HCl 1.25 GM in Sodium Chloride 0.9% 250 ML 250 ML IVPB SCH (09:00)
--- NOTE | 2017-12-31 10:02 | PDOC.PN ---
- Subjective Encounter Start Date: 12/31/17 Encounter Start Time: 10:01 - Objective Resuscitation Status: Resuscitation Status FULL:Full Resuscitation Vital Signs & Weight: Vital Signs (12 hours) Temp Pulse Resp BP Pulse Ox 12/31/17 08:10 97.8 F 61 16 150/89 H 100 12/31/17 04:00 98 F 80 16 128/77 95 12/30/17 23:57 98.5 F 87 16 137/87 97 Weight Admit Weight 200 lb Weight 200 lb I&O: 12/30/17 12/31/17 01/01/18 06:59 06:59 06:59 Intake Total 1939 1879 Balance 1939 1879 Result Diagrams: 12/29/17 23:57 12/29/17 23:57 Dx/Plan (1) Abscess of right thigh Code(s): L02.415 - CUTANEOUS ABSCESS OF RIGHT LOWER LIMB Status: Acute Comment: S/p I&D. Awaiting culture results. MRSA is positive on previous cultures. Will continue antibiotics. Wound care. Will need ID to tell us which antibiotics patient can leave the hospital on. Will follow up with surgery on futher plans. (2) Cellulitis of right thigh Code(s): L03.115 - CELLULITIS OF RIGHT LOWER LIMB Status: Acute Comment: continue antibiotics (3) Sepsis Code(s): A41.9 - SEPSIS, UNSPECIFIED ORGANISM Status: Acute Comment: resolved. Will continue current managment. (4) Anxiety Code(s): F41.9 - ANXIETY DISORDER, UNSPECIFIED Status: Acute Comment: stable - Plan * .
[2017-12-31] MEDS ORDERED: Clindamycin 150 MG CAP PO SCH ×3 (12:00→18:00)
--- NOTE | 2017-12-31 12:21 | PRG ---
DATE OF SERVICE: 12/31/2017 HISTORY: Mr. Pineda is doing well after I&D, no respiratory symptoms, abdominal pain, no diarrhea. PHYSICAL EXAMINATION: VITAL SIGNS: Normal except for some elevation in systolic blood pressure. LUNGS: Clear. HEART: S1, S2, regular rate. ABDOMEN: Soft, not distended. EXTREMITIES: The operative report was reviewed. Dr. Sullivan did a transverse skin incision. An absc ess cavity was drained sharply. The cultures have yielded methicillin-resistant Staphylococcus aureu s. This strain is susceptible to clindamycin, rifampin, tetracycline. ASSESSMENT AND DISCUSSION: Abscess, right thigh, status post I&D secondary to methicillin-resistant Staphylococcus aureus, we will switch him to oral clindamycin in preparation for discharge planning.
[2018-01-01] MEDS: Clindamycin 150 MG CAP PO SCH ×4 (00:10→16:34)
[2018-01-01] MEDS: Lactated Ringer's 1,000 ML IV SCH ×2 (02:08→11:42)
[2018-01-01] MEDS: HYDROcodone/Acetaminophen 5/325 mg Tablet PO PRN ×2 (06:06→10:38)
[2018-01-01] MEDS: Famotidine 20 MG TAB PO SCH (09:03)
[2018-01-01] MEDS: Naproxen 500 MG TAB PO SCH ×2 (09:03→16:34)
[2018-01-01] MEDS: Senokot S 8.6-50 MG TAB PO SCH (09:04)
[2018-01-01] MEDS: Enoxaparin Sodium 40 MG/0.4 ML SYRINGE SC SCH (09:04)
[2018-01-01] MEDS: Polyethylene Glycol 3350 17 GM Packet PO SCH (09:04)
--- NOTE | 2018-01-01 11:22 | PDOC.PN ---
- Subjective Encounter Start Date: 01/01/18 Encounter Start Time: 11:20 seen and examined. NAD - Objective Resuscitation Status: Resuscitation Status FULL:Full Resuscitation MAR Reviewed: Yes Vital Signs & Weight: Vital Signs (12 hours) Temp Pulse Resp BP Pulse Ox 01/01/18 08:00 98.2 F 66 20 96 01/01/18 07:50 98.2 F 66 20 134/82 96 01/01/18 04:56 97 F L 65 16 137/90 97 01/01/18 00:35 98.0 F 68 16 138/75 97 01/01/18 00:00 98 F 68 16 138/75 97 Weight Admit Weight 200 lb Weight 200 lb I&O: 12/31/17 01/01/18 01/02/18 06:59 06:59 06:59 Intake Total 1880 1250 Balance 1880 1250 Result Diagrams: 12/29/17 23:57 12/29/17 23:57 Phys Exam - Physical Examination Constitutional: NAD HEENT: PERRLA Neck: no JVD Respiratory: no wheezing, no rales, no rhonchi Cardiovascular: RRR, no significant murmur, no rub Gastrointestinal: soft, non-tender, no distention, positive bowel sounds Musculoskeletal: no edema, pulses present Neurological: non-focal, normal sensation, moves all 4 limbs Psychiatric: normal affect, A&O x 3 Deviation from normal: right thigh wound with dressing. Dx/Plan (1) Abscess of right thigh Code(s): L02.415 - CUTANEOUS ABSCESS OF RIGHT LOWER LIMB Status: Acute Comment: S/p I&D. Awaiting placement. (2) Cellulitis of right thigh Code(s): L03.115 - CELLULITIS OF RIGHT LOWER LIMB Status: Acute Comment: continue antibiotics (3) Sepsis Code(s): A41.9 - SEPSIS, UNSPECIFIED ORGANISM Status: Acute Comment: resolved. Will continue current managment. (4) Anxiety Code(s): F41.9 - ANXIETY DISORDER, UNSPECIFIED Status: Acute Comment: stable - Plan * . Review of Systems - Review of Systems Constitutional: negative: fever, chills, sweats, weakness, malaise, other Eyes: negative: Pain, Vision Change, Conjunctivae Inflammation, Eyelid Inflammation, Redness, Other ENT: negative: Ear Pain, Ear Discharge, Nose Pain, Nose Discharge, Nose Congestion, Mouth Pain, Mouth Swelling, Throat Pain, Throat Swelling, Other Respiratory: negative: Cough, Dry, Shortness of Breath, Hemoptysis, SOB with Excertion, Pleuritic Pain, Sputum, Wheezing Cardiovascular: negative: chest pain, palpitations, orthopnea, paroxysmal nocturnal dyspnea, edema, light headedness, other Gastrointestinal: negative: Nausea, Vomiting, Abdominal Pain, Diarrhea, Constipation, Melena, Hematochezia, Other Genitourinary: negative: Dysuria, Frequency, Incontinence, Hematuria, Retention , Other Musculoskeletal: negative: Neck Pain, Shoulder Pain, Arm Pain, Back Pain, Hand Pain, Leg Pain, Foot Pain, Other Skin: negative: Rash, Lesions, Ruben, Bruising, Other Neurological: negative: Weakness, Numbness, Incoordination, Change in Speech, Confusion, Seizures, Other - Medications/Allergies Allergies/Adverse Reactions: Allergies Allergy/AdvReac Type Severity Reaction Status Date / Time No Known Allergies Allergy Unverified 12/26/17 03:21 Medications: Current Medications Acetaminophen (Tylenol) 650 mg PO Q4H PRN PRN Reason: Headache/Fever or Pain Hydrocodone Bitart/Acetaminophen ([place] 5/325) 1 tab PO Q4H PRN PRN Reason: Moderate Pain (4-6) Hydrocodone Bitart/Acetaminophen ([place] 5/325) 2 tab PO Q4H PRN PRN Reason: Severe Pain (7-10) Last Admin: 01/01/18 10:38 Dose: 2 tab Calcium Carbonate (Tums) 1,000 mg PO Q4H PRN PRN Reason: Heartburn or Indigestion Clindamycin HCl (Cleocin) 300 mg PO Q6HR [facility] Last Admin: 01/01/18 06:03 Dose: 300 mg Enoxaparin Sodium (Lovenox) 40 mg SC 0900 [facility] Last Admin: 01/01/18 09:04 Dose: 40 mg Famotidine (Pepcid) 20 mg PO BID [facility] Last Admin: 01/01/18 09:03 Dose: 20 mg Lactated Ringer's (Lactated Ringer's) 1,000 mls @ 100 mls/hr IV .Q10H [facility] Last Admin: 01/01/18 02:08 Dose: Not Given Naproxen (Naprosyn) 500 mg PO BID-[facility] Last Admin: 01/01/18 09:03 Dose: 500 mg Ondansetron HCl (Zofran Odt) 4 mg PO Q6H PRN PRN Reason: Nausea/Vomiting Polyethylene Glycol (Miralax) 17 gm PO DAILY [facility] Last Admin: 01/01/18 09:04 Dose: Not Given Senna (Senokot) 2 tab PO HSPRN PRN PRN Reason: Constipation Senna/Docusate Sodium (Senokot S) 1 tab PO BID [facility] Last Admin: 01/01/18 09:04 Dose: 1 tab Sodium Chloride (Flush - Normal Saline) 10 ml IVF Q12HR [facility] Last Admin: 01/01/18 09:04 Dose: 10 ml Sodium Chloride (Flush - Normal Saline) 10 ml IVF PRN PRN PRN Reason: Saline Flush
--- NOTE | 2018-01-01 11:28 | DIS ---
The patient was seen and examined by me. The patient did not have any problems. The patient stated that he was doing well and his leg is feeling much better. Vitals were reviewed within normal limits. DISCHARGE DIAGNOSES: 1. Abscess of right thigh. 2. Cellulitis of right thigh. 3. Sepsis. 4. Anxiety. HOSPITAL COURSE: This is a 42-year-old male inmate who came in to the emergency room with r ight thigh swelling and pain for one day. Upon further examination, patient had MRSA. So, the patie nt was then started on vancomycin. ID was consulted. Eventually Surgery was consulted as well. The patient's right thigh was I&D'd in the OR and packed. The patient then was transitioned to oral cli ndamycin. We will discharge the patient on oral clindamycin. In the emergency room, patient's vital s initially temperature was 102.3, heart rate of 120. Blood pressure was 153/90, oxygen saturation w as 96%. DISCHARGE MEDICATIONS: Kindly refer to the electronic medical record for discharge medications. CBC showed WBC of 14.3, hemoglobin of 14.2. CRP of 11.9, hemoglobin of 5.4. Troponins was negative. Sodium 137, potassium was 4, chloride was 107, bicarbonate of 20, BUN of 10, creatinine of 0.8. Ur inalysis was negative. X-ray of the femur was negative. Blood cultures showed MRSA. DISPOSITION: The patient was in good and stable condition. The patient is to be discharged today.
[2018-01-01 17:23] VITALS: BP 163/96; TEMP 98.7
--- NOTE | 2018-01-02 12:17 | EKG ---
Test Reason : Blood Pressure : / mmHG Vent. Rate : 121 BPM Atrial Rate : 121 BPM P-R Int : 118 ms QRS Dur : 076 ms QT Int : 314 ms P-R-T Axes : 024 037 012 degrees QTc Int : 445 ms Sinus tachycardia Cannot rule out Inferior infarct , age undetermined Abnormal ECG Confirmed by HANS ZAMBRANO ([id number]), loan expeditor ERIBERTO WADE ([id number]) on 01/02/2018 12:16:35 PM Referred By: JUAN MANUEL Confirmed By:HANS ZAMBRANO
== END 2018-01-01 17:26 | DRG 872 ==
LOC: ERS 23:11 → SURG A 12-26 03:11
PROVIDERS: ADMIT Hospitalist; ATTEND Hospitalist
PROC: 0J9L0ZX Drainage of Right Upper Leg Subcutaneous Tissue and Fascia, Open Approach, Diagnostic (ICD-10-PCS; principal; 2017-12-30)
DX: A41.02 Sepsis due to Methicillin resistant Staphylococcus aureus (principal); L03.115 Cellulitis of right lower limb; L02.415 Cutaneous abscess of right lower limb; F41.9 Anxiety disorder, unspecified; G89.29 Other chronic pain; M25.559 Pain in unspecified hip; F17.210 Nicotine dependence, cigarettes, uncomplicated; E66.9 Obesity, unspecified; Z68.31 Body mass index [BMI] 31.0-31.9, adult; B95.62 Methicillin resistant Staphylococcus aureus infection as the cause of diseases classified elsewhere
CPT/HCPCS: 36415; 80048; 80053; 80202; 81003; 82553; 83036; 83605; 83735; 84484; 85025; 86140; 87040; 87070; 87077; 87149; 87186; 87205; 93005; 96361; 96365; 96367; 96374; 96375; A4216; J0670; J0696; J1100; J1650; J1885; J2001; J2270; J2405; J2543; J2704; J3010; J3370; J7050; S0028